=== PATIENT | male | born 1960 | race Caucasian/White ===

== ENCOUNTER 2020-09-02 03:45 | Emergency (ER) | payer SELFPAY ==
[~2020-09-02] VITALS: Ht 167.6 cm; Wt 72.6 kg
[2020-09-02 03:50] VITALS: BP 140/69
--- NOTE | 2020-09-02 03:50 | NUR ---
BHAKTI CRESPO. TAKEN TO CHAIR C
--- NOTE | 2020-09-02 04:08 | NUR ---
PATIENT BIB [facility]. PATIENT EXAMINED BY DR. GUTIERRES PATIENT MEDICALLY CLEARED AND RELEASED IN CUSTODY IN STABLE CONDITION. ORIGINAL PRE-BOOK FORM GIVEN TO OFFICER SONYA, #[id number].
== END 2020-09-02 04:08 ==
LOC: MED 03:45
DX: Z02.89 Encounter for other administrative examinations (principal); V98.8XXA Other specified transport accidents, initial encounter; Y93.89 Activity, other specified; Y92.89 Other specified places as the place of occurrence of the external cause; Y99.8 Other external cause status
CPT/HCPCS: 99283